=== PATIENT | male | born 1950 | race Caucasian/White ===

== ENCOUNTER → 2016-07-05 | Outpatient (CLI) | payer OTHER ==
[2016-07-05 14:27] LABS: ESTIMATED AVERAGE GLUCOSE 157 mg/dl; HA1C FLAG Normal (Normal)
[2016-07-05 18:06] LABS: BLOOD UREA NITROGEN 16 mg/dl (7-18); BUN/CREATININE RATIO 16.5 (10-20); CALCIUM 9.7 mg/dl (8.5-10.1); CARBON DIOXIDE 33 mmol/L (21-32); CHLORIDE 104 mmol/L (98-107); GLUCOSE 106 mg/dl (70-99); POTASSIUM 4.5 mmol/L (3.5-5.1); SODIUM 142 mmol/L (136-145)
[2016-07-05 18:17] LABS: PHOSPHORUS 3.7 mg/dl (2.5-4.9)
== END | disposition home or self-care (01) ==
LOC: C.LABMFLN 12:02
PROVIDERS: ATTEND Family Medicine
DX: E11.9 Type 2 diabetes mellitus without complications (principal)

== ENCOUNTER → 2016-07-23 | Outpatient (CLI) | payer OTHER | LOC: C.PATHSPEC 12:00 | PROVIDERS: ATTEND Dermatology | DX: L57.0 Actinic keratosis (principal) ==

== ENCOUNTER → 2016-07-29 | Outpatient (CLI) | payer OTHER ==
[2016-07-29 13:13] LABS: BASO % 0.2 %; BASO ABS # 0.02 K/uL (0-0.2); COMPLETE YES; EOS % 0.7 %; HEMATOCRIT 30.3 % (42-52); IG% 0.4 %; LYMPH % 17.8 %; LYMPH ABS # 1.59 K/uL (1.2-3.4); MEAN CELL VOLUME 79.7 fL (80-100); MEAN CORPUSCULAR HEMOGLOBIN 24.7 pg (25-34); MEAN PLATELET VOLUME 9.1 fL (7.4-10.4); NEUT % 70.9 %; PLATELET COUNT 373 K/uL (130-400); WHITE BLOOD COUNT 8.92 K/uL (4.8-10.8)
== END | disposition home or self-care (01) ==
LOC: C.LABMFLN 12:12
PROVIDERS: ATTEND Family Medicine
DX: D50.0 Iron deficiency anemia secondary to blood loss (chronic) (principal)

== ENCOUNTER → 2016-09-09 | Outpatient (CLI) | payer OTHER ==
[2016-09-09 18:37] LABS: BASO % 0.3 %; BASO ABS # 0.03 K/uL (0-0.2); COMPLETE YES; EOS % 3.5 %; HEMATOCRIT 35.6 % (42-52); IG% 0.2 %; LYMPH % 20.9 %; LYMPH ABS # 2.02 K/uL (1.2-3.4); MEAN CELL VOLUME 79.3 fL (80-100); MEAN CORPUSCULAR HEMOGLOBIN 24.7 pg (25-34); MEAN CORPUSCULAR HGB CONC 31.2 g/dl (32-36); MEAN PLATELET VOLUME 9.8 fL (7.4-10.4); MONO % 9.4 %; NEUT % 65.7 %; PLATELET COUNT 189 K/uL (130-400); RED BLOOD COUNT 4.49 M/uL (4.7-6.1); WHITE BLOOD COUNT 9.68 K/uL (4.8-10.8)
== END ==
LOC: C.LABMFLN 14:16
PROVIDERS: ATTEND Family Medicine
DX: D50.0 Iron deficiency anemia secondary to blood loss (chronic) (principal)

== ENCOUNTER → 2016-11-14 | Outpatient (CLI) | payer OTHER ==
[2016-11-14 13:24] LABS: BASO % 0.3 %; BASO ABS # 0.02 K/uL (0-0.2); EOS % 3.8 %; HEMATOCRIT 38.6 % (42-52); IG% 0.1 %; LYMPH % 33.9 %; LYMPH ABS # 2.33 K/uL (1.2-3.4); MEAN CELL VOLUME 74.1 fL (80-100); MEAN CORPUSCULAR HEMOGLOBIN 23.6 pg (25-34); MEAN CORPUSCULAR HGB CONC 31.9 g/dl (32-36); MEAN PLATELET VOLUME 9.9 fL (7.4-10.4); MONO % 9.6 %; NEUT % 52.3 %; PLATELET COUNT 165 K/uL (130-400); RED BLOOD COUNT 5.21 M/uL (4.7-6.1); WHITE BLOOD COUNT 6.87 K/uL (4.8-10.8)
[2016-11-14 13:49] LABS: COMPLETE YES; MICROCYTOSIS PRESENT
[2016-11-14 14:04] LABS: ESTIMATED AVERAGE GLUCOSE 134 mg/dl; HA1C FLAG Normal (Normal)
[2016-11-14 14:35] LABS: BLOOD UREA NITROGEN 28 mg/dl (7-18); BUN/CREATININE RATIO 21.7 (10-20); CALCIUM 9.7 mg/dl (8.5-10.1); CARBON DIOXIDE 25 mmol/L (21-32); CHLORIDE 110 mmol/L (98-107); GLUCOSE 102 mg/dl (70-99); PHOSPHORUS 3.5 mg/dl (2.5-4.9); POTASSIUM 4.4 mmol/L (3.5-5.1); SODIUM 141 mmol/L (136-145)
== END | disposition home or self-care (01) ==
LOC: C.LABMFLN 10:57
PROVIDERS: ATTEND Family Medicine
DX: D50.0 Iron deficiency anemia secondary to blood loss (chronic) (principal); E11.9 Type 2 diabetes mellitus without complications

== ENCOUNTER → 2016-12-26 | Outpatient (CLI) | payer OTHER | END | disposition home or self-care (01) | LOC: C.PATHSPEC 17:28 | PROVIDERS: ATTEND Dermatology | DX: C44.612 Basal cell carcinoma of skin of right upper limb, including shoulder (principal); C44.619 Basal cell carcinoma of skin of left upper limb, including shoulder ==

== ENCOUNTER → 2017-02-26 | Outpatient (CLI) | payer OTHER ==
[2017-02-26 12:50] LABS: ESTIMATED AVERAGE GLUCOSE 120 mg/dl; HA1C FLAG Normal (Normal)
[2017-02-26 12:59] LABS: BASO % 0.5 %; BASO ABS # 0.04 K/uL (0-0.2); COMPLETE YES; EOS % 3.8 %; HEMATOCRIT 38.7 % (42-52); IG% 0.1 %; LYMPH ABS # 2.21 K/uL (1.2-3.4); MEAN CELL VOLUME 76.6 fL (80-100); MEAN CORPUSCULAR HEMOGLOBIN 24.6 pg (25-34); MEAN PLATELET VOLUME 9.7 fL (7.4-10.4); MONO % 8.5 %; NEUT % 58.1 %; PLATELET COUNT 180 K/uL (130-400); RED BLOOD COUNT 5.05 M/uL (4.7-6.1); WHITE BLOOD COUNT 7.62 K/uL (4.8-10.8)
[2017-02-26 13:39] LABS: ALT/SGPT 18 U/L (12-78); AST/SGOT 13 U/L (15-37); BLOOD UREA NITROGEN 20 mg/dl (7-18); BUN/CREATININE RATIO 16.4 (10-20); CALCIUM 9.4 mg/dl (8.5-10.1); CARBON DIOXIDE 27 mmol/L (21-32); CHLORIDE 104 mmol/L (98-107); CHOLESTEROL 154 mg/dl (0-200); CREATININE 1.24 mg/dl (0.60-1.40); GLUCOSE 115 mg/dl (70-99); POTASSIUM 4.7 mmol/L (3.5-5.1); SODIUM 136 mmol/L (136-145)
[2017-02-26 13:42] LABS: ALB/GLOB RATIO 1.1 (0.9-2); ALKALINE PHOSPHATASE 57 U/L (45-117); CHOLESTEROL/HDL RATIO 4.4; HDL CHOLESTEROL 35 mg/dl; LDL CHOLESTEROL CALCULATED 99 mg/dl; TRIGLYCERIDES 99 mg/dl (0-150); VERY LOW DENSITY LIPOPROT CALC 20 mg/dl
== END | disposition home or self-care (01) ==
LOC: C.LABMFLN 09:31
PROVIDERS: ATTEND Family Medicine
DX: E11.9 Type 2 diabetes mellitus without complications (principal)

== ENCOUNTER → 2017-05-30 | Outpatient (CLI) | payer OTHER | END | disposition home or self-care (01) | LOC: C.PATHSPEC 13:29 | PROVIDERS: ATTEND Dermatology | DX: C44.319 Basal cell carcinoma of skin of other parts of face (principal); C44.519 Basal cell carcinoma of skin of other part of trunk; C44.612 Basal cell carcinoma of skin of right upper limb, including shoulder; C44.619 Basal cell carcinoma of skin of left upper limb, including shoulder ==

== ENCOUNTER → 2017-06-03 | Outpatient (CLI) | payer OTHER ==
[2017-06-03 12:44] LABS: BASO % 0.5 %; BASO ABS # 0.04 K/uL (0-0.2); EOS % 3.4 %; EOS ABS # 0.27 K/uL (0-0.5); HEMATOCRIT 38.3 % (42-52); HEMOGLOBIN 12.5 g/dL (14.0-18.0); IG# 0.03 K/uL (0.00-0.02); LYMPH % 30.1 %; LYMPH ABS # 2.39 K/uL (1.2-3.4); MEAN CELL VOLUME 76.6 fL (80-100); MEAN CORPUSCULAR HGB CONC 32.6 g/dl (32-36); MONO % 8.4 %; MONO ABS # 0.67 K/uL (0.11-0.59); NEUT % 57.2 %; NEUT ABS # 4.54 K/uL (1.4-6.5); PLATELET COUNT 182 K/uL (130-400); RED CELL DISTRIBUTION WIDTH CV 14.3 % (11.5-14.5); RED CELL DISTRIBUTION WIDTH SD 40.6 fL (36.4-46.3); WHITE BLOOD COUNT 7.94 K/uL (4.8-10.8)
[2017-06-03 13:52] LABS: CREATININE RANDOM URINE 87.4 mg/dl
[2017-06-03 14:37] LABS: BLOOD UREA NITROGEN 25 mg/dl (7-18); CALCIUM 9.6 mg/dl (8.5-10.1); CARBON DIOXIDE 23 mmol/L (21-32); CREATININE 1.41 mg/dl (0.60-1.40); GLUCOSE 117 mg/dl (70-99); PHOSPHORUS 3.6 mg/dl (2.5-4.9); POTASSIUM 4.6 mmol/L (3.5-5.1); SODIUM 140 mmol/L (136-145)
== END | disposition home or self-care (01) ==
LOC: C.LABMFLN 09:48
PROVIDERS: ATTEND Family Medicine
DX: E11.9 Type 2 diabetes mellitus without complications (principal)

== ENCOUNTER → 2017-06-13 | Outpatient (CLI) | payer OTHER ==
[2017-06-13 13:14] LABS: ALBUMIN 3.9 gm/dl (3.4-5.0); BLOOD UREA NITROGEN 25 mg/dl (7-18); CALCIUM 9.2 mg/dl (8.5-10.1); CARBON DIOXIDE 25 mmol/L (21-32); GLUCOSE 98 mg/dl (70-99); PHOSPHORUS 3.5 mg/dl (2.5-4.9); POTASSIUM 4.2 mmol/L (3.5-5.1); SODIUM 137 mmol/L (136-145)
== END | disposition home or self-care (01) ==
LOC: C.LABMFLN 07:06
PROVIDERS: ATTEND Family Medicine
DX: I10 Essential (primary) hypertension (principal)

== ENCOUNTER 2018-09-05 23:55 | Inpatient (IN) ==
[2018-09-06] MEDS ORDERED: POLYETHYLENE (MIRALAX) 17 GM PACK PO PRN (02:39)
[2018-09-06] MEDS ORDERED: MAGNESIUM HYDROXIDE SUSP 30 ML UDC PO PRN (02:39)
[2018-09-06] MEDS ORDERED: ALUMINUM/MAGNESIUM SUSP 30 ML UDC PO PRN (02:39)
[2018-09-06] MEDS ORDERED: GLUCAGON FOR INJ 1 MG VIAL SQ PRN (02:39)
[2018-09-06] MEDS ORDERED: CARBOHYDRATES FOR HYPOGLYCEMIA PO PRN (02:39)
[2018-09-06] MEDS ORDERED: MoRPHine SULFATE 4 MG/ML 1 ML CARP\\VIAL IV PRN (02:39)
[2018-09-06] MEDS ORDERED: ACETAMINOPHEN 325 MG TAB PO PRN (02:39)
[2018-09-06] MEDS ORDERED: ONDANSETRON INJ 2 MG/ML 2 ML VIAL IV PRN ×2 (02:39→14:32)
[2018-09-06] MEDS ORDERED: GLUCOSE 40% GEL 15 GM TUBE PO PRN (02:39)
[2018-09-06] MEDS ORDERED: GLUCOSE 10 TABS/TUBE PO PRN (02:39)
[2018-09-06] MEDS ORDERED: DEXTROSE 50% 50 ML SYRINGE IV PRN (02:39)
--- NOTE | 2018-09-06 02:57 | History & Physical Report ---
Date of Service September 06, 2018 Assessment & Plan (1) Hydronephrosis with obstructing calculus: 67yo M admitted 09/06/18 as a direct transfer from [facility] for hydronephrosis with obstructing calculus Hydronephrosis with obstructing calculus -Consulted urology, appreciate recs -NSS at 125, NPO -Started on Rocephin -morphine for pain -Zofran prn for nausea -Strain urine -Monitor labs T2DM with complications (neuropathy, nephropathy) -Placed on ISS, holding home PO agents -Last A1c measured in May 2018=6.2%. Has been <7 for 2 years. will defer recheck. Chronic uveitis of R eye/Glaucoma -Patient on 4 eye drops, to bring from home HTN -Continue metoprolol 25 ER, amlodipine -Hold lisinopril 20 Anemia -hold daily iron H/O GI bleed -states this started 3 days after initiating asa -Will hold agents at this time Code: full DVTP: SCDs Dispo: med/surg. (Manuela) to be contacted in AM: Home--[phone]. Cell--[phone]. 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 He notes he was awoken on the evening of 09/05/18 with severe R flank pain which radiated to his back and RLQ. He presented to [facility] and was transferred here after CT findings as above. Per discussion with OSH, [facility] urology has been contacted. His labs at OSH were significant for Cr 1.8 (Baseline 1.4-1.58), WBC 11,300, UA showing Large blood and 50+ RBCs. He was started on rocephin, given fentanyl, compazine and zofran. Upon arrival he is afebrile, VSS with some hypertension. He is currently in moderate pain in the R flank and nauseated. Allergies Allergy/AdvReac Type Severity Reaction Status Date / Time aspirin AdvReac Unknown Verified 09/06/18 03:01 Home Medications Home Medications Medication Instructions Recorded Confirmed Type cyanocobalamin (vit B-12) 1,000 PO .TAKE 1 TABLET DAILY tab 08/19/18 08/19/18 History mcg tablet ferrous gluconate 324 mg (38 mg PO .TAKE 1 TABLET DAILY. tab 08/19/18 08/19/18 History iron) tablet loteprednol etabonate 0.5 % eye OP .instill one drop rig gm 08/19/18 08/19/18 History gel drops metformin 1,000 mg tablet PO .Take 1 tablet twice #180 tab 08/19/18 08/19/18 History metoprolol succinate ER 25 mg PO .TAKE 1 TABLET DAILY. 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 (Acute) Chronic uveitis of right eye (Acute) Chronic rhinitis (Acute) CKD (chronic kidney disease), stage III (Acute) Benign essential hypertension (Acute) Anemia (Acute) Hypertension Kidney stone Surgical History History of appendectomy History of vasectomy Social History Preferred Language: Czech Communication Ability: Effective Security Rep Required: No Beliefs That Will Affect Care: None Current Living Situation: Spouse Current Living Situation Comment: "private residence" Other Information That Helps Us Care for You: No Feels Safe at Home: Yes Safety Concerns: Feels Safe At This Time Smoking Status: Never smoker Hx Alcohol Use: Yes Alcohol type: beer and wine Hx Substance Use: No Review of Systems Review of Systems: All systems reviewed & are unremarkable except as noted in HPI & below Constitutional: + body aches and + fatigue; no fever and no chills Eyes: + discharge and + worsening vision Ear, Nose, Mouth, Throat: + hearing loss and + nasal congestion Respiratory: no cough and no dyspnea Cardiovascular: no chest pain and no radiating jaw, neck or arm pain Gastrointestinal: + abdominal pain (R-sided, RLQ), + nausea and + vomiting Genitourinary: + flank pain and + problem reported (dark urine); no hematuria Neurologic: + loss of sensation (peripheral neuropathy); no tingling Physical Exam Constitutional: WD/WN, vitals as above cooperative and comfortable; no acute distress and no altered mental status Eyes: + conjunctival abnormality (injection, discharge) and reactive pupils ENMT: Ears: + hearing impairment Neck: normal visual inspection Respiratory: normal respiratory effort, lungs clear to auscultation Cardiovascular: RRR, no murmur, no edema Gastrointestinal (Abdomen): Percussion/Palpation: + abdomen tender (R flank, RLQ), + guarding and abdomen soft Skin: no rashes, warm and dry Neurologic: Motor/Sensory: + sensory deficit (peripheral neuropathy bilaterally of feet) Psychiatric: A+Ox3, euthymic affect Genitourinary: + CVA tenderness (R sided) Results & Data Vital Signs (Past 12 Hours) Vital Signs Temp Pulse Resp BP Pulse Ox 09/06/18 00:30 36.7 C 90 16 170/89 H 95 Code Status & VTE Plan Code Status full Supervising Physician Co-Signing Physician Notes Patient seen and examined, chart reviewed, case discussed with Dr. Banuelos and I agree with her assessment and plan as documented above. Resident Activity Tracking Resident Involvement: Resident Care Provided Care Provided: Adult Hospital Medicine
[2018-09-06] MEDS: SODIUM CHLORIDE 0.9% 1000ML 1,000 ML IV SCH ×3 (03:13→23:22)
[2018-09-06] MEDS ORDERED: PROCHLORPERAZINE 10 MG in SYRINGE 8 ML IV PRN (04:31)
[2018-09-06] MEDS: INSULIN ASPART 100 UNITS/ML 3 ML PEN SC SCH ×4 (05:33→21:35)
[2018-09-06 06:00] LABS: Basophils # (auto) 0.01 K/uL (0-0.2); Basophils % (auto) 0.1 %; Eosinophils # (auto) 0.02 K/uL (0-0.5); Eosinophils % (auto) 0.2 %; Hematocrit (blood only) 33.9 % (42-52); Hemoglobin 11.2 g/dL (14.0-18.0); Immature Granulocytes # (auto) 0.03 K/uL (0.00-0.02); Immature Granulocytes % (auto) 0.3 %; Lymphocytes # (auto) 1.12 K/uL (1.2-3.4); Lymphocytes % (auto) 10.3 %; Mean Corpuscular Volume 74.7 fL (80-100); Mean Platelet Volume 8.5 fL (7.4-10.4); Monocytes # (auto) 0.91 K/uL (0.11-0.59); Monocytes % (auto) 8.4 %; Neutrophils # (auto) 8.76 K/uL (1.4-6.5); Neutrophils % (auto) 80.7 %; Platelet Count 132 K/uL (130-400); RDW Coefficient of Variation 14.6 % (11.5-14.5); RDW Standard Deviation 39.9 fL (36.4-46.3); Red Blood Count 4.54 M/uL (4.7-6.1); White Blood Count 10.85 K/uL (4.8-10.8)
[2018-09-06 06:34] LABS: BUN Creatinine Ratio 18.3 (10-20); Creatinine Clr Calc Pharmacy 49.3 ml/min; Est GFR (Non-African American) 41.4
[2018-09-06 06:38] LABS: RBC Morphology Unremarkable
[2018-09-06] MEDS: METOPROLOL SUCC 25MG EXT REL TAB PO SCH (08:47)
[2018-09-06] MEDS: AMLODIPINE BESYLATE 5 MG TAB PO SCH (08:47)
[2018-09-06] MEDS: INSULIN GLARGINE SOLOSTAR 100 UNITS/ML 3 ML PEN SC SCH ×2 (08:47→21:28)
[2018-09-06] MEDS: cefTRIAXone SODIUM 2,000 MG in DEXTROSE 5% 50 ML IV SCH (08:47)
[2018-09-06] MEDS ORDERED: LISINOPRIL 20 MG TAB PO SCH (09:00)
--- NOTE | 2018-09-06 11:37 | Anesthesiology Consultation ---
Date of Service September 06, 2018 Assessment & Plan (1) Encounter for pre-operative examination: Chart Review Chart Review: Acceptable Risk for Surgery and Patient NOT seen in Pre Admission Testing Consults Requested none ASA ASA2 Proposed Anesthesia Anesthesia Type: MAC Risk / Benefits Reviewed With: PT / POA / Parent / Guardian, Accepts Plan and Informed Consent Obtained History Surgery Operation Date: 09/06/18 12:30 Proposed Procedures p Cystoscopy, Stent insertion, possible laser lithotripsy - Walt Esposito II, DO Height/Weight Height: 6 ft 1.5 in Weight: 92 kg Allergies Allergy/AdvReac Type Severity Reaction Status Date / Time aspirin AdvReac Unknown Verified 09/06/18 03:01 Medications Home Medications Medication Instructions Recorded Confirmed Last Taken cyanocobalamin (vit B-12) 1,000 1,000 mcg PO DAILY tab 08/19/18 09/06/18 Unknown mcg tablet ferrous gluconate 324 mg (38 mg 324 mg PO DAILY tab 08/19/18 09/06/18 Unknown iron) tablet loteprednol etabonate 0.5 % eye 1 drp OPR QID gm 08/19/18 09/06/18 Unknown gel drops metformin 1,000 mg tablet 1,000 mg PO BID #180 tab 08/19/18 09/06/18 Unknown metoprolol succinate ER 25 mg 25 mg PO DAILY #30 tab 08/19/18 09/06/18 Unknown tablet,extended release 24 hr netarsudil 0.02 % eye drops 1 drp OPR DAILY ml 08/19/18 09/06/18 Unknown sitagliptin 50 mg tablet 50 mg PO DAILY #30 tab 08/19/18 09/06/18 Unknown amlodipine 10 mg tablet 10 mg PO DAILY #30 tab 08/31/18 Unknown Active Medications Generic Name Dose Route Start Last Admin Trade Name Freq PRN Reason Stop Dose Admin Amlodipine Besylate 10 mg 09/06/18 09:00 09/06/18 08:47 Norvasc PO 10/06/18 08:59 10 mg DAILY KATIE Administration Sodium Chloride 1,000 mls @ 125 mls/hr 09/06/18 02:45 09/06/18 11:08 Nss 1000ml IV 10/06/18 02:44 125 mls/hr .Q8H KATIE Administration Ceftriaxone Sodium 2,000 mg/ 70 mls @ 140 mls/hr 09/06/18 09:00 09/06/18 09:22 Dextrose IV 09/16/18 08:59 Infused Q24H [facility] Infusion Protocol Prochlorperazine 10 mg/ 10 mls @ 5 mls/min 09/06/18 04:31 09/06/18 05:24 Syringe IV 10/06/18 04:30 5 mls/min Q4H PRN Administration Nausea And Vomiting Insulin Aspart 0 units 09/06/18 06:00 09/06/18 12:25 Novolog Flexpen SC 10/06/18 05:59 Not Given Q6 [facility] Insulin Glargine 16 units 09/06/18 09:00 09/06/18 08:47 Lantus Solostar Pen SC 10/06/18 08:59 16 units BID KATIE Administration Metoprolol Succinate 25 mg 09/06/18 09:00 09/06/18 08:47 Toprol Xl PO 10/06/18 08:59 25 mg DAILY KATIE Administration Morphine Sulfate 4 mg 09/06/18 02:39 09/06/18 03:13 Morphine Sulfate IV 09/20/18 02:38 4 mg Q2H PRN Administration Pain Ondansetron HCl 4 mg 09/06/18 02:39 09/06/18 03:13 Zofran IV 10/06/18 02:38 4 mg Q6H PRN Administration Nausea NPO Date Last Intake of Fluids: 09/05/18 Time Last Intake of Fluids: 12:00 Date Last Intake of Solids: 09/05/18 Time Last Intake of Solids: 12:00 Past Medical History Medical History Mixed conductive and sensorineural hearing loss of left ear with restricted hearing of right ear (Acute) History of basal cell carcinoma (Acute) Glaucoma (Acute) Diverticulosis of colon (Acute) Diabetes mellitus, type II (Acute) 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 Past Surgical History Surgical History History of appendectomy History of vasectomy Past Anesthesia History No Hx of Anesthesia Complications History of PONV No Hx of PONV and No Hx of Motion Sickness Social History Smoking Status: Never smoker Hx Alcohol Use: Yes Alcohol type: beer and wine alcohol intake frequency: holidays/special occasions only Hx Substance Use: No substance use type: does not use Review of Systems Patient denies active symptoms of GERD. Denies nausea currently - last emesis about 5 AM Physical Exam Vital Signs Last Vital Signs Temp 37.0 C 09/06/18 07:32 Pulse 81 09/06/18 07:32 Resp 16 09/06/18 07:32 BP 143/76 H 09/06/18 07:32 Pulse Ox 98 09/06/18 07:32 Constitutional not obese ENMT Mouth: + small oral opening; no TMJ abnormality Thyromental Distance: > or= 3.5 Finger Breadths Mallampati Class: III Neck normal visual inspection and + facial hair; neck extension not limited Respiratory normal respiratory effort Auscultation: lungs clear to auscultation bilaterally Cardiovascular Rate/Rhythm: regular rate and regular rhythm Heart Sounds: no murmur Neurologic moves all extremities Motor/Sensory: + sensory deficit (Neuropathy in feet and hands) Psychiatric Orientation: alert and oriented x 3 Testing Laboratory Results 09/06/18 05:45 09/06/18 05:45
--- NOTE | 2018-09-06 12:43 | Urology Consultation ---
Date of Consultation September 06, 2018 Assessment & Plan (1) Hydronephrosis with obstructing calculus: History of Present Illness Attending Physician: Tessa Lyons MD History of Present Illness Sudden onset of severe right flank pain in waves with nausea and discomfort and ill feelings. Has followed with nephrology. No previous stones. Was in [place] and found 9 mm mid right ureteral stone with perinephric stranding. Mild white count. pain uncontrolled. Transferred. Improved pain control but still severe waves at times. Allergies Allergy/AdvReac Type Severity Reaction Status Date / Time aspirin AdvReac Unknown Verified 09/06/18 03:01 Home Medications Home Medications Medication Instructions Recorded Confirmed Type cyanocobalamin (vit B-12) 1,000 1,000 mcg PO DAILY tab 08/19/18 09/06/18 History mcg tablet ferrous gluconate 324 mg (38 mg 324 mg PO DAILY tab 08/19/18 09/06/18 History iron) tablet loteprednol etabonate 0.5 % eye 1 drp OPR QID gm 08/19/18 09/06/18 History gel drops metformin 1,000 mg tablet 1,000 mg PO BID #180 tab 08/19/18 09/06/18 History metoprolol succinate ER 25 mg 25 mg PO DAILY #30 tab 08/19/18 09/06/18 History tablet,extended release 24 hr netarsudil 0.02 % eye drops 1 drp OPR DAILY ml 08/19/18 09/06/18 History sitagliptin 50 mg tablet 50 mg PO DAILY #30 tab 08/19/18 09/06/18 History amlodipine 10 mg tablet 10 mg PO DAILY #30 tab 08/31/18 Rx Patient History Medical History Mixed conductive and sensorineural hearing loss of left ear with restricted hearing of right ear (Acute) History of basal cell carcinoma (Acute) Glaucoma (Acute) Diverticulosis of colon (Acute) Diabetes mellitus, type II (Acute) 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 (Acute) Chronic uveitis of right eye (Acute) Chronic rhinitis (Acute) CKD (chronic kidney disease), stage III (Acute) Benign essential hypertension (Acute) Anemia (Acute) Hypertension Kidney stone Surgical History History of appendectomy History of vasectomy Social History Preferred Language: Ethiopian Communication Ability: Effective Micro Computer Data Processor Required: No Beliefs That Will Affect Care: None Current Living Situation: Spouse Current Living Situation Comment: "private residence" Other Information That Helps Us Care for You: No Feels Safe at Home: Yes Safety Concerns: Feels Safe At This Time Smoking Status: Never smoker Hx Alcohol Use: Yes Alcohol type: beer and wine Hx Substance Use: No Review of Systems Review of Systems: All systems reviewed & are unremarkable except as noted in HPI & below Constitutional: + body aches and + fatigue; no fever and no chills Eyes: + discharge and + worsening vision Ear, Nose, Mouth, Throat: + hearing loss and + nasal congestion Gastrointestinal: + abdominal pain (R-sided, RLQ), + nausea and + vomiting Genitourinary: + flank pain and + problem reported (dark urine); no hematuria Neurologic: + loss of sensation (peripheral neuropathy); no tingling Physical Exam Constitutional: WD/WN, vitals as above cooperative and comfortable; no acute distress and no altered mental status Eyes: + conjunctival abnormality (injection, discharge) and reactive pupils ENMT: Ears: + hearing impairment Neck: normal visual inspection Respiratory: no respiratory distress, no labored breathing and no retractions Cardiovascular: Rate/Rhythm: not tachycardic Extremities: no edema Gastrointestinal (Abdomen): Percussion/Palpation: + abdomen tender (R flank, RLQ), + guarding and abdomen soft Skin: no rashes, warm and dry Neurologic: Motor/Sensory: + sensory deficit (peripheral neuropathy chandrika aterally of feet) Psychiatric: A+Ox3, euthymic affect Genitourinary: + CVA tenderness (R sided) Lymphatic: no lymphadenopathy Results & Data Vital Signs (Past 12 Hours) Vital Signs Temp Pulse Resp BP Pulse Ox 09/06/18 07:32 37.0 C 81 16 143/76 H 98 09/06/18 02:59 89 169/94 H
[2018-09-06] MEDS ORDERED: PROPOFOL IV EMULSION 10 MG/ML 20 ML VIAL IV ONE ×2 (14:00→14:54)
[2018-09-06] MEDS ORDERED: fentaNYL citrate 100 MCG/2 ML VIAL ONE (14:00)
[2018-09-06] MEDS ORDERED: MIDAZOLAM HCL 1 MG/ML 2ML VIAL ONE (14:00)
[2018-09-06] MEDS ORDERED: LIDOCAINE HCL 2% 2 ML VIAL/AMP(20MG/ML) INFIL ONE (14:00)
[2018-09-06] MEDS ORDERED: IOTHALAMATE MEGLUMINE II 17.2% 250 ML VIAL ONE (14:30)
[2018-09-06] MEDS ORDERED: fentaNYL citrate 100 MCG/2 ML VIAL IV PRN (14:32)
[2018-09-06] MEDS ORDERED: PROMETHAZINE HCL 12.5 MG in SODIUM CHLORIDE 0.9% 50 ML IV PRN (14:32)
[2018-09-06] MEDS ORDERED: ATROPINE SULFATE 0.1 MG/ML 10ML SYR IV PRN (14:32)
[2018-09-06] MEDS ORDERED: ePHEDrine sulfate 50 MG/ML AMP IV PRN (14:32)
[2018-09-06] MEDS ORDERED: ONDANSETRON INJ 2 MG/ML 2 ML VIAL ONE (14:38)
--- NOTE | 2018-09-06 15:07 | Operative Report ---
Post Operative Report Pre & Post Diagnosis Operation Date: 09/06/18 12:30 Pre-Op Diagnosis: LARGE OBSTRUCTIVE RENAL RIGHT STONE,RENAL INSUFFICIENCY Post-Op Diagnosis: LARGE OBSTRUCTIVE RENAL RIGHT STONE,RENAL INSUFFICIENCY Procedure Operation Date: 09/06/18 12:30 Actual Procedures p Cystoscopy, Right Retrograde pyelogram, Right Ureteral stent insertion(Right) - Walt Esposito II, DO Surgeon Walt Esposito, II, DO Lap Machine Tender None Estimated Blood Loss 0 Findings Consistent with Post-Op Diagnosis Large debris from kidney with stent placement. Specimens Urine from Right Pelvis. Drains 6 Fr Multilength. Anesthesia Type MAC Complications none Disposition Disposition: Recovery Room Indications Patient with obstructing stone 9 mm in mid ureter. Risks and benefits discussed. Description of Procedure Patient was consented and brought back to the operating room. Patient was placed under anesthesia in the supine position and moved to the dorsal lithotomy position. Patient was prepped and draped in the regular sterile fashion. A time out was completed. A 30degree Cystoscope was placed into the bladder and the entire bladder was examined. The UO's were identified. The right UO was cannulized with a catheter and urine was aspirated. Old appearing clot and debris was seen draining. The catheter was advanced and a retrograde pyelogram was completed. A wire was then placed. With the wire in place, a 6 Fr Double J stent was placed. It was confirmed with fluoroscopy. With the stent in place, the bladder was emptied. The scope was removed. The patient was cleaned, aroused from anesthesia, and transferred to the pacu in stable condition having tolerated the procedure well with no complications. I was present and participated in all aspects of the procedure. The patient will be monitored in the PACU until transferred. I attest to the content of the Intraoperative Record and any orders documented therein. Any exceptions are noted below.
--- NOTE | 2018-09-06 15:44 | Anesthesiology Progress Note ---
Date of Service September 06, 2018 Anesthesia Post Procedure Vital Signs Vital Signs: Temp Pulse Pulse Resp BP Pulse Ox 09/06/18 15:35 70 13 118/63 95 09/06/18 15:25 72 17 112/66 96 09/06/18 15:15 36.6 C 72 14 114/65 98 09/06/18 07:32 37.0 C 81 16 143/76 H 98 09/06/18 02:59 89 169/94 H 09/06/18 00:30 36.7 C 90 16 170/89 H 95 Pain Intensity Right Flank: Pain Intensity: 2 Transfer of Care Handoff Completed per policy Notes Mental Status: alert / awake / arousable and participated in evaluation Nausea / Vomiting: adequately controlled Pain: adequately controlled Airway Patency, RR, SpO2: stable & adequate BP & HR: stable & adequate Hydration State: stable & adequate Anesthetic Complications: no major complications apparent and Pt Satisfied with anesthetic care
[2018-09-06] MEDS ORDERED: Nursing to Pharmacy Communication ONE (16:36)
--- NOTE | 2018-09-06 16:48 | Fluoroscopy Report ---
FL retrograde includes kub HISTORY: 67 years-old Male CYSTO cystourethrogram with right flank pain and right ureteral stent laura cement COMPARISON: None available TECHNIQUE: 2 spot fluoroscopic images of the right abdomen and pelvis were obtained utilizing 28.1 se conds fluoroscopy time FINDINGS: A right ureteral stent is present which appears to be in satisfactory positioning. No definite calcul i seen along the course of the right ureter. IMPRESSION: Fluoroscopic assistance as above. Please see procedural report for further details. The above report was generated using voice recognition software. It may contain grammatical, syntax o r spelling errors. Electronically signed by: Lefty Qureshi M.D. 09/06/2018 4:47 PM
[2018-09-06] MEDS: LOTEMAX OPR SCH (21:20)
[2018-09-06] MEDS: COMBIGAN OP SCH (21:20)
[2018-09-06] MEDS: RHOPRESSA: NON-FORMULARY PATIENT'S OWN MED OPR SCH (21:20)
[2018-09-07] MEDS: SODIUM CHLORIDE 0.9% 1000ML 1,000 ML IV SCH (06:08)
--- NOTE | 2018-09-07 07:25 | Anesthesiology Progress Note ---
Date of Service September 07, 2018 Anesthesia Post Procedure Vital Signs Vital Signs: Temp Pulse Pulse Pulse Pulse Resp BP 09/07/18 03:21 36.5 C 64 19 126/69 09/06/18 23:14 36.7 C 71 18 125/71 09/06/18 19:03 37.0 C 76 20 09/06/18 18:04 37.1 C 74 20 09/06/18 17:07 37.1 C 74 18 09/06/18 16:34 37.0 C 70 20 09/06/18 16:09 37 C 74 16 09/06/18 15:45 37.2 C 72 19 09/06/18 15:35 70 13 09/06/18 15:25 72 17 09/06/18 15:15 36.6 C 72 14 09/06/18 07:32 37.0 C 81 16 BP Pulse Ox 09/07/18 03:21 98 09/06/18 23:14 97 09/06/18 19:03 129/67 94 09/06/18 18:04 155/81 H 98 09/06/18 17:07 151/82 H 99 09/06/18 16:34 156/81 H 97 09/06/18 16:09 147/78 H 95 09/06/18 15:45 115/60 94 09/06/18 15:35 118/63 95 09/06/18 15:25 112/66 96 09/06/18 15:15 114/65 98 09/06/18 07:32 143/76 H 98 Pain Intensity Right Flank: Pain Intensity: 2 Notes Mental Status: alert / awake / arousable and participated in evaluation Patient Amnestic to Procedure: Yes Nausea / Vomiting: adequately controlled Pain: adequately controlled Airway Patency, RR, SpO2: stable & adequate BP & HR: stable & adequate Hydration State: stable & adequate Anesthetic Complications: no major complications apparent and Pt Satisfied with anesthetic care
[2018-09-07] MEDS: LOTEMAX OPR SCH ×4 (08:25→21:02)
[2018-09-07] MEDS: COMBIGAN OP SCH ×2 (08:25→21:01)
[2018-09-07] MEDS: AMLODIPINE BESYLATE 5 MG TAB PO SCH (08:26)
--- NOTE | 2018-09-07 08:26 | XRay Report ---
XR KUB/Abdomen 1 view CLINICAL HISTORY: 67 years-old Male presenting with R ureteral stone visibility, s/p stent. TECHNIQUE: Single supine view of the abdomen was obtained. COMPARISON: Fluoroscopic images performed yesterday. FINDINGS: Moderate stool burden most pronounced in the right colon. This degrades evaluation of the renal shado ws. Nonobstructive bowel gas pattern. No gross pneumoperitoneum. A right ureteral stent remains in place. Numerous pelvic phleboliths. Allowing for stool burden, no r adiographic evidence of ureteral calculus. No renal calculi are radiographically evident. Osseous structures normal. Lung bases clear. IMPRESSION: 1. Right ureteral stent in place. Nonvisualization of renal or ureteral calculi. Electronically signed by: Prabhakar Dalton M.D. 09/07/2018 8:24 AM
[2018-09-07] MEDS: METOPROLOL SUCC 25MG EXT REL TAB PO SCH (08:27)
[2018-09-07] MEDS: INSULIN GLARGINE SOLOSTAR 100 UNITS/ML 3 ML PEN SC SCH ×2 (08:30→21:05)
[2018-09-07] MEDS: INSULIN ASPART 100 UNITS/ML 3 ML PEN SC SCH ×4 (08:32→21:04)
[2018-09-07] MEDS: cefTRIAXone SODIUM 2,000 MG in DEXTROSE 5% 50 ML IV SCH (08:35)
[2018-09-07 08:43] LABS: Basophils # (auto) 0.02 K/uL (0-0.2); Basophils % (auto) 0.2 %; Eosinophils # (auto) 0.21 K/uL (0-0.5); Eosinophils % (auto) 2.5 %; Hematocrit (blood only) 35.3 % (42-52); Hemoglobin 11.6 g/dL (14.0-18.0); Immature Granulocytes # (auto) 0.02 K/uL (0.00-0.02); Immature Granulocytes % (auto) 0.2 %; Lymphocytes # (auto) 2.17 K/uL (1.2-3.4); Lymphocytes % (auto) 26.1 %; Mean Corpuscular Volume 76.1 fL (80-100); Mean Platelet Volume 8.6 fL (7.4-10.4); Monocytes # (auto) 0.95 K/uL (0.11-0.59); Monocytes % (auto) 11.4 %; Neutrophils # (auto) 4.94 K/uL (1.4-6.5); Neutrophils % (auto) 59.6 %; Platelet Count 144 K/uL (130-400); RDW Coefficient of Variation 15.1 % (11.5-14.5); Red Blood Count 4.64 M/uL (4.7-6.1); White Blood Count 8.31 K/uL (4.8-10.8)
[2018-09-07 09:16] LABS: Mean Corpuscular Hgb Conc 32.9 g/dL (32-36)
[2018-09-07 09:29] LABS: BUN Creatinine Ratio 16.6 (10-20); Calcium 9.2 mg/dl (8.5-10.1); Creatinine Clr Calc Pharmacy 50.2 ml/min; Est GFR (Non-African American) 42.3; Potassium 3.9 mmol/L (3.5-5.1)
--- NOTE | 2018-09-07 11:01 | Family Medicine Progress Note ---
Date of Service September 07, 2018 Assessment & Plan (1) Hydronephrosis with obstructing calculus: 67yo M admitted 09/06/18 as a direct transfer from [facility] for hydronephrosis with obstructing calculus, now s/p R ureteral stent placement. Hydronephrosis with obstructing calculus -s/p Cystoscopy, Right Retrograde pyelogram, Right Ureteral stent insertion -NSS at 125 dc'd, tolerating PO intake. Cont encourage plenty of fluids -Cont Rocephin -morphine for pain -Zofran prn for nausea -will cont monitor kidney function, labs -appreciate urology recs moving forward T2DM with complications (neuropathy, nephropathy) -Placed on ISS, holding home PO agents -Last A1c measured in May 2018=6.2%. Has been <7 for 2 years. will defer recheck. Chronic uveitis of R eye/Glaucoma -Patient on 4 eye drops, to bring from home HTN -Continue metoprolol 25 mg ER, amlodipinen 10 mg -Hold lisinopril 20 mg Anemia -cont daily iron H/O GI bleed -states this started 3 days after initiating asa -Will hold agents at this time FEN/GI: Diabetic Diet DVT Prophylaxis: SCDs, Ambulation Full Code Dispo: med/surg. ([place]) to be contacted in AM: Home--[phone]. Cell--[phone]. Subjective 67 y/o M found in chair this AM in NAD. Reports pain improved since yesterday. Only concerns about ongoing red-tinged urine. Otherwise tolerating PO intake. No other issues voiding. States would be ok with d/c today or tomorrow. No other acute concerns or complaints. Review of Systems Review of Systems: All systems reviewed & are unremarkable except as noted in HPI & below Physical Exam Constitutional: WD/WN, vitals as above Eyes: PERRL, conjunctivae normal, anicteric sclerae ENMT: external ear and nose normal, oropharynx normal Respiratory: normal respiratory effort, lungs clear to auscultation Cardiovascular: RRR, no murmur, no edema Gastrointestinal (Abdomen): mild lower abd tenderness Skin: no rashes, warm and dry Psychiatric: A+Ox3, euthymic affect Results & Data Vital Signs (Past 12 Hours) Vital Signs Temp Pulse Pulse Pulse Resp BP Pulse Ox 09/07/18 07:50 36.7 C 70 18 160/84 H 97 09/07/18 03:21 36.5 C 64 19 126/69 98 09/06/18 23:14 36.7 C 71 18 125/71 97 Laboratory Results Laboratory Results - last 24 hr 09/06/18 09/06/18 09/06/18 12:22 15:29 17:12 WBC RBC Hgb Hct MCV MCH MCHC RDW Std Deviation RDW Coeff of Jer Plt Count MPV Immature Gran % (Auto) Neut % (Auto) Lymph % (Auto) [place] % (Auto) Eos % (Auto) Baso % (Auto) Immature Gran # (Auto) Neut # (Auto) Lymph # (Auto) [place] # (Auto) Eos # (Auto) Baso # (Auto) Sodium Potassium Chloride Carbon Dioxide Anion Gap BUN Creatinine Est Cr Clr Drug Dosing Est GFR ( Amer) Est GFR (Non-Af Amer) BUN/Creatinine Ratio Glucose POC Glucose 127 H 97 100 H Calcium 09/06/18 09/07/18 09/07/18 20:43 08:30 08:32 WBC 8.31 RBC 4.64 L Hgb 11.6 L Hct 35.3 L MCV 76.1 L MCH 25.0 MCHC 32.9 RDW Std Deviation 42.0 RDW Coeff of Jer 15.1 H Plt Count 144 MPV 8.6 Immature Gran % (Auto) 0.2 Neut % (Auto) 59.6 Lymph % (Auto) 26.1 [place] % (Auto) 11.4 Eos % (Auto) 2.5 Baso % (Auto) 0.2 Immature Gran # (Auto) 0.02 Neut # (Auto) 4.94 Lymph # (Auto) 2.17 [place] # (Auto) 0.95 H Eos # (Auto) 0.21 Baso # (Auto) 0.02 Sodium Potassium Chloride Carbon Dioxide Anion Gap BUN Creatinine Est Cr Clr Drug Dosing Est GFR ( Amer) Est GFR (Non-Af Amer) BUN/Creatinine Ratio Glucose POC Glucose 131 H 78 Calcium 09/07/18 08:35 WBC RBC Hgb Hct MCV MCH MCHC RDW Std Deviation RDW Coeff of Jer Plt Count MPV Immature Gran % (Auto) Neut % (Auto) Lymph % (Auto) [place] % (Auto) Eos % (Auto) Baso % (Auto) Immature Gran # (Auto) Neut # (Auto) Lymph # (Auto) [place] # (Auto) Eos # (Auto) Baso # (Auto) Sodium 142 Potassium 3.9 Chloride 108 H Carbon Dioxide 27 Anion Gap 7.0 BUN 28 H Creatinine 1.66 H Est Cr Clr Drug Dosing 50.2 Est GFR ( Amer) 49.0 Est GFR (Non-Af Amer) 42.3 BUN/Creatinine Ratio 16.6 Glucose 81 POC Glucose Calcium 9.2 Medications Administered Current Inpatient Medications Acetaminophen (Tylenol) 650 mg PO Q4H PRN PRN Reason: pain/fever Stop: 10/06/18 02:38 Al Hydrox/Mg Hydrox/Simethicone (Maalox) 30 ml PO Q6H PRN PRN Reason: Dyspepsia Stop: 10/06/18 02:38 Amlodipine Besylate (Norvasc) 10 mg PO DAILY KATIE Stop: 10/06/18 08:59 Last Admin: 09/07/18 08:26 Dose: 10 mg Documented by: Dextrose (Dextrose 50%) 25 - 50 ml IV UD PRN; Protocol PRN Reason: Hypoglycemia Protocol Stop: 10/06/18 02:38 Glucagon (Glucagen) 1 mg SQ UD PRN; Protocol PRN Reason: Hypoglycemia Protocol Stop: 10/06/18 02:38 Glucose (Glucose 40%) 15 - 30 gm PO UD PRN; Protocol PRN Reason: Hypoglycemia Protocol Stop: 10/06/18 02:38 Glucose (Dex4 Glucose) 4 - 8 tabs PO UD PRN; Protocol PRN Reason: Hypoglycemia Protocol Stop: 10/06/18 02:38 Ceftriaxone Sodium 2,000 mg/ (Dextrose) 70 mls @ 140 mls/hr IV Q24H KATIE; Protocol Stop: 09/16/18 08:59 Last Infusion: 09/07/18 09:32 Dose: Infused Documented by: Prochlorperazine 10 mg/ (Syringe) 10 mls @ 5 mls/min IV Q4H PRN PRN Reason: Nausea And Vomiting Stop: 10/06/18 04:30 Last Admin: 09/06/18 05:24 Dose: 5 mls/min Documented by: Insulin Aspart (Novolog Flexpen) 0 units SC ACHS KATIE Stop: 10/06/18 16:29 Last Admin: 09/07/18 08:32 Dose: 6 units Documented by: Insulin Glargine (Lantus Solostar Pen) 16 units SC BID [facility] Stop: 10/06/18 08:59 Last Admin: 09/07/18 08:30 Dose: 16 units Documented by: Lisinopril (Zestril) 20 mg PO QAM [facility] Stop: 10/06/18 08:59 Magnesium Hydroxide (Milk Of Magnesia) 30 ml PO Q6H PRN PRN Reason: Constipation Stop: 10/06/18 02:38 Metoprolol Succinate (Toprol Xl) 25 mg PO DAILY [facility] Stop: 10/06/18 08:59 Last Admin: 09/07/18 08:27 Dose: 25 mg Documented by: Miscellaneous (Carbohydrates For Hypoglycemia) 15 - 30 gm PO UD PRN PRN Reason: Hypoglycemia Treatment Stop: 10/06/18 02:38 Morphine Sulfate (Morphine Sulfate) 4 mg IV Q2H PRN PRN Reason: Pain Stop: 09/20/18 02:38 Last Admin: 09/06/18 03:13 Dose: 4 mg Documented by: Lotemax: Non- Formulary Patient's Own Med 1 ea OPR QID [facility] Stop: 10/06/18 20:59 Last Admin: 09/07/18 08:25 Dose: 1 drops Documented by: Rhopressa: Non- Formulary Patient's Own Med 1 ea OPR HS [facility] Stop: 10/06/18 20:59 Last Admin: 09/06/18 21:20 Dose: 1 drops Documented by: Tati ~ Non- Formulary Patient's Own Med 1 ea OP BID [facility] Stop: 10/06/18 20:59 Last Admin: 09/07/18 08:25 Dose: 1 drops Documented by: Ondansetron HCl (Zofran) 4 mg IV Q6H PRN PRN Reason: Nausea Stop: 10/06/18 02:38 Last Admin: 09/06/18 03:13 Dose: 4 mg Documented by: Polyethylene Glycol (Miralax Powder Packet) 17 gm PO DAILY PRN PRN Reason: Constipation Stop: 10/06/18 02:38
--- NOTE | 2018-09-07 11:26 | Urology Progress Note ---
Date of Service September 07, 2018 Assessment & Plan (1) Hydronephrosis with obstructing calculus: 67yo M POD #1 s/p R ureteral stent placement secondary to obstructing 9mm stone, moderate hydro, LUKE on CKD. Experiencing typical stent irritation today. KUB performed to check visibility of stone, unfortunately unable to view due to stool. UC&S pending, UA not overly suspicious for UTI. Cr remains elevated today, mildly improved s/p stent placement. May take a few days to respond. ESWL vs URS discussed, unable to visualize stone on KUB presently. May benefit from repeat after colon cleanse while inpatient. He is experiencing some bloating, constipation however uncertain what to maddy mmend due to kidney function. Will defer to primary team for this. Typically does not suffer from constipatin. Pt is agreeable to ESWL later this week if able to visualize stone. Will continue to monitor while inpatient. Subjective 67yo M POD #1 s/p R ureteral stent secondary to obstructing 9mm ureteral stone with moderate hydro. CT completed at [facility], images not available. Tolerating stent okay, typical irritation including some dysuria and hematuria. Pt also experiencing small amount of clots around tip of penis. Otherwise voiding okay, feels he is emptying his bladder fine. Tolerating PO diet well, denies n/v. Denies fevers/chills. Again this is his first stone. Follows with nephrology, Dr. Winter for CKD III with baseline Cr. 1.2-1.3, but at most recent visit staying around 1.5 (Jan 2018) secondary to microvascular disease with HTN and DM. Review of Systems Review of Systems: All systems reviewed & are unremarkable except as noted in HPI & below Physical Exam Physical Exam: A&Ox3 RRR abd soft, nontender no suprapubic pain on palpation. Some old bloody around meatus, no active bleeding. Results & Data Vital Signs (Past 12 Hours) Vital Signs Temp Pulse Pulse Resp BP Pulse Ox 09/07/18 07:50 36.7 C 70 18 160/84 H 97 09/07/18 03:21 36.5 C 64 19 126/69 98 Laboratory Results Laboratory Results - last 48 hr 09/06/18 09/06/18 09/06/18 05:27 05:45 05:45 WBC 10.85 H RBC 4.54 L Hgb 11.2 L Hct 33.9 L MCV 74.7 L MCH 24.7 L MCHC 33.0 RDW Std Deviation 39.9 RDW Coeff of Jer 14.6 H Plt Count 132 MPV 8.5 Immature Gran % (Auto) 0.3 Neut % (Auto) 80.7 Lymph % (Auto) 10.3 [place] % (Auto) 8.4 Eos % (Auto) 0.2 Baso % (Auto) 0.1 Immature Gran # (Auto) 0.03 H Neut # (Auto) 8.76 H Lymph # (Auto) 1.12 L [place] # (Auto) 0.91 H Eos # (Auto) 0.02 Baso # (Auto) 0.01 RBC Morphology Unremarkable Sodium 137 Potassium 4.0 Chloride 106 Carbon Dioxide 25 Anion Gap 6.0 BUN 31 H Creatinine 1.69 H Est Cr Clr Drug Dosing 49.3 Est GFR ( Amer) 48.0 Est GFR (Non-Af Amer) 41.4 BUN/Creatinine Ratio 18.3 Glucose 149 H POC Glucose 150 H Calcium 9.0 09/06/18 09/06/18 09/06/18 12:22 15:29 17:12 WBC RBC Hgb Hct MCV MCH MCHC RDW Std Deviation RDW Coeff of Jer Plt Count MPV Immature Gran % (Auto) Neut % (Auto) Lymph % (Auto) [place] % (Auto) Eos % (Auto) Baso % (Auto) Immature Gran # (Auto) Neut # (Auto) Lymph # (Auto) [place] # (Auto) Eos # (Auto) Baso # (Auto) RBC Morphology Sodium Potassium Chloride Carbon Dioxide Anion Gap BUN Creatinine Est Cr Clr Drug Dosing Est GFR ( Amer) Est GFR (Non-Af Amer) BUN/Creatinine Ratio Glucose POC Glucose 127 H 97 100 H Calcium 09/06/18 09/07/18 09/07/18 20:43 08:30 08:32 WBC 8.31 RBC 4.64 L Hgb 11.6 L Hct 35.3 L MCV 76.1 L MCH 25.0 MCHC 32.9 RDW Std Deviation 42.0 RDW Coeff of Jer 15.1 H Plt Count 144 MPV 8.6 Immature Gran % (Auto) 0.2 Neut % (Auto) 59.6 Lymph % (Auto) 26.1 [place] % (Auto) 11.4 Eos % (Auto) 2.5 Baso % (Auto) 0.2 Immature Gran # (Auto) 0.02 Neut # (Auto) 4.94 Lymph # (Auto) 2.17 [place] # (Auto) 0.95 H Eos # (Auto) 0.21 Baso # (Auto) 0.02 RBC Morphology Sodium Potassium Chloride Carbon Dioxide Anion Gap BUN Creatinine Est Cr Clr Drug Dosing Est GFR ( Amer) Est GFR (Non-Af Amer) BUN/Creatinine Ratio Glucose POC Glucose 131 H 78 Calcium 09/07/18 09/07/18 08:35 12:14 WBC RBC Hgb Hct MCV MCH MCHC RDW Std Deviation RDW Coeff of Jer Plt Count MPV Immature Gran % (Auto) Neut % (Auto) Lymph % (Auto) [place] % (Auto) Eos % (Auto) Baso % (Auto) Immature Gran # (Auto) Neut # (Auto) Lymph # (Auto) [place] # (Auto) Eos # (Auto) Baso # (Auto) RBC Morphology Sodium 142 Potassium 3.9 Chloride 108 H Carbon Dioxide 27 Anion Gap 7.0 BUN 28 H Creatinine 1.66 H Est Cr Clr Drug Dosing 50.2 Est GFR ( Amer) 49.0 Est GFR (Non-Af Amer) 42.3 BUN/Creatinine Ratio 16.6 Glucose 81 POC Glucose 184 H Calcium 9.2
[2018-09-07] MEDS: FERROUS SULFATE 325 MG TAB PO SCH (12:50)
--- NOTE | 2018-09-07 16:22 | Family Medicine Progress Note ---
Date of Service September 07, 2018 Assessment & Plan (1) Hydronephrosis with obstructing calculus: 67yo M admitted 09/06/18 as a direct transfer from [facility] for hydronephrosis with obstructing calculus, now s/p R ureteral stent placement. Hydronephrosis with obstructing calculus -s/p Cystoscopy, Right Retrograde pyelogram, Right Ureteral stent insertion 09/06 -NSS at 125 dc'd, tolerating PO intake. Cont encourage plenty of fluids (~60 oz/day). Cr unchanged from yesterday, ~1.6, will cont monitor kidney function, labs. Repeat BMP script on d/c -Cont Rocephin. Will switch to PO cefdinir on dc -Tylenol/morphine for pain. -Zofran prn for nausea -KUB this AM- calculi not visualized due to stool. Will stack MiraLax until BM, repeat KUB in AM -Pt is agreeable to ESWL later this week if able to visualize stone. -appreciate urology recs moving forward T2DM with complications (neuropathy, nephropathy) -Placed on ISS, holding home PO agents -Last A1c measured in May 2018=6.2%. Has been <7 for 2 years. Will defer recheck. Chronic uveitis of R eye/Glaucoma -Patient on 4 eye drops, to bring from home HTN -Continue metoprolol 25 mg ER, amlodipine 10 mg -Hold lisinopril 20 mg given kidney function Anemia -cont daily iron. No concerns for acute bleeding. Stable h/h. Cont trend H/O GI bleed -states this started 3 days after initiating asa -Will hold agents at this time Constipation/Lower Abd Pain -Stacked MiraLax as above. Notes normally does not get constipated. FEN/GI: Diabetic Diet DVT Prophylaxis: SCDs, Ambulation Full Code Dispo: med/surg. D/C tomorrow. Issues with transportation today. Supervising Physician Co-Signing Physician Notes I personally examined the patient and verified all magdaleno points of history and exam, discussed case, and agree with decision making with Dr Harris. Generally feeling better. Flank/back pain better. No distress. Vitals noted, in general he is awake and alert pleasant no distress. HEENT normocephalic atraumatic mucous membranes moist. Breathing unlabored no accessory muscle use good effort. Skin shows no rashes no pallor or icterus. Neuro shows cranial nerves II through XII are grossly intact gross motor and sensory intact. Ureterolithiasisnow stable status post cystoscopy and stenting. Continue supportive care. Outpatient follow-up. Elevated creatininelikely due to dehydration prior from stone related pain/nausea/vomitinghe is now tolerating p.o. fluid. Follow-up basic metabolic panel in a few days as an outpatient. Otherwise as above. Subjective 67 y/o M found in bed this AM in NAD. No acute overnight events. States ok with d/c possibly today. Reports that pain improved. Has concerns over red color of urine s/p procedure, explained that this is normal finding. Tolerating PO i ntake. No other issues voiding. No other acute concerns or complaints. Review of Systems Review of Systems: All systems reviewed & are unremarkable except as noted in HPI & below Physical Exam Constitutional: WD/WN, vitals as above Eyes: PERRL, conjunctivae normal, anicteric sclerae ENMT: external ear and nose normal, oropharynx normal Respiratory: normal respiratory effort, lungs clear to auscultation Cardiovascular: RRR, no murmur, no edema Gastrointestinal (Abdomen): mild lower abd pain Skin: no rashes, warm and dry Psychiatric: A+Ox3, euthymic affect Results & Data Vital Signs (Past 12 Hours) Vital Signs Temp Pulse Pulse Resp BP BP Pulse Ox 09/07/18 15:08 37.2 C 71 17 156/84 H 96 09/07/18 11:31 36.7 C 68 18 152/80 H 96 09/07/18 07:50 36.7 C 70 18 160/84 H 97 Laboratory Results Laboratory Results - last 24 hr 09/06/18 09/06/18 09/07/18 17:12 20:43 08:30 WBC RBC Hgb Hct MCV MCH MCHC RDW Std Deviation RDW Coeff of Jer Plt Count MPV Immature Gran % (Auto) Neut % (Auto) Lymph % (Auto) [place] % (Auto) Eos % (Auto) Baso % (Auto) Immature Gran # (Auto) Neut # (Auto) Lymph # (Auto) [place] # (Auto) Eos # (Auto) Baso # (Auto) Sodium Potassium Chloride Carbon Dioxide Anion Gap BUN Creatinine Est Cr Clr Drug Dosing Est GFR ( Amer) Est GFR (Non-Af Amer) BUN/Creatinine Ratio Glucose POC Glucose 100 H 131 H 78 Calcium 09/07/18 09/07/18 09/07/18 08:32 08:35 12:14 WBC 8.31 RBC 4.64 L Hgb 11.6 L Hct 35.3 L MCV 76.1 L MCH 25.0 MCHC 32.9 RDW Std Deviation 42.0 RDW Coeff of Jer 15.1 H Plt Count 144 MPV 8.6 Immature Gran % (Auto) 0.2 Neut % (Auto) 59.6 Lymph % (Auto) 26.1 [place] % (Auto) 11.4 Eos % (Auto) 2.5 Baso % (Auto) 0.2 Immature Gran # (Auto) 0.02 Neut # (Auto) 4.94 Lymph # (Auto) 2.17 [place] # (Auto) 0.95 H Eos # (Auto) 0.21 Baso # (Auto) 0.02 Sodium 142 Potassium 3.9 Chloride 108 H Carbon Dioxide 27 Anion Gap 7.0 BUN 28 H Creatinine 1.66 H Est Cr Clr Drug Dosing 50.2 Est GFR ( Amer) 49.0 Est GFR (Non-Af Amer) 42.3 BUN/Creatinine Ratio 16.6 Glucose 81 POC Glucose 184 H Calcium 9.2 Medications Administered Current Inpatient Medications Acetaminophen (Tylenol) 650 mg PO Q4H PRN PRN Reason: pain/fever Stop: 10/06/18 02:38 Al Hydrox/Mg Hydrox/Simethicone (Maalox) 30 ml PO Q6H PRN PRN Reason: Dyspepsia Stop: 10/06/18 02:38 Amlodipine Besylate (Norvasc) 10 mg PO DAILY [facility] Stop: 10/06/18 08:59 Last Admin: 09/07/18 08:26 Dose: 10 mg Documented by: Dextrose (Dextrose 50%) 25 - 50 ml IV UD PRN; Protocol PRN Reason: Hypoglycemia Protocol Stop: 10/06/18 02:38 Ferrous Sulfate (Feosol) 325 mg PO QAM [facility] Stop: 10/07/18 11:14 Last Admin: 09/07/18 12:50 Dose: 325 mg Documented by: Glucagon (Glucagen) 1 mg SQ UD PRN; Protocol PRN Reason: Hypoglycemia Protocol Stop: 10/06/18 02:38 Glucose (Glucose 40%) 15 - 30 gm PO UD PRN; Protocol PRN Reason: Hypoglycemia Protocol Stop: 10/06/18 02:38 Glucose (Dex4 Glucose) 4 - 8 tabs PO UD PRN; Protocol PRN Reason: Hypoglycemia Protocol Stop: 10/06/18 02:38 Ceftriaxone Sodium 2,000 mg/ (Dextrose) 70 mls @ 140 mls/hr IV Q24H KATIE; Protocol Stop: 09/16/18 08:59 Last Infusion: 09/07/18 09:32 Dose: Infused Documented by: Prochlorperazine 10 mg/ (Syringe) 10 mls @ 5 mls/min IV Q4H PRN PRN Reason: Nausea And Vomiting Stop: 10/06/18 04:30 Last Admin: 09/06/18 05:24 Dose: 5 mls/min Documented by: Insulin Aspart (Novolog Flexpen) 0 units SC ACHS [facility] Stop: 10/06/18 16:29 Last Admin: 09/07/18 12:48 Dose: 6 units Documented by: Insulin Glargine (Lantus Solostar Pen) 16 units SC BID [facility] Stop: 10/06/18 08:59 Last Admin: 09/07/18 08:30 Dose: 16 units Documented by: Lisinopril (Zestril) 20 mg PO QAM [facility] Stop: 10/06/18 08:59 Magnesium Hydroxide (Milk Of Magnesia) 30 ml PO Q6H PRN PRN Reason: Constipation Stop: 10/06/18 02:38 Metoprolol Succinate (Toprol Xl) 25 mg PO DAILY [facility] Stop: 10/06/18 08:59 Last Admin: 09/07/18 08:27 Dose: 25 mg Documented by: Miscellaneous (Carbohydrates For Hypoglycemia) 15 - 30 gm PO UD PRN PRN Reason: Hypoglycemia Treatment Stop: 10/06/18 02:38 Morphine Sulfate (Morphine Sulfate) 4 mg IV Q2H PRN PRN Reason: Pain Stop: 09/20/18 02:38 Last Admin: 09/06/18 03:13 Dose: 4 mg Documented by: Lotemax: Non- Formulary Patient's Own Med 1 ea OPR QID [facility] Stop: 10/06/18 20:59 Last Admin: 09/07/18 12:46 Dose: Not Given Documented by: Rhopressa: Non- Formulary Patient's Own Med 1 ea OPR HS [facility] Stop: 10/06/18 20:59 Last Admin: 09/06/18 21:20 Dose: 1 drops Documented by: Tati ~ Non- Formulary Patient's Own Med 1 ea OP BID [facility] Stop: 10/06/18 20:59 Last Admin: 09/07/18 08:25 Dose: 1 drops Documented by: Ondansetron HCl (Zofran) 4 mg IV Q6H PRN PRN Reason: Nausea Stop: 10/06/18 02:38 Last Admin: 09/06/18 03:13 Dose: 4 mg Documented by: Polyethylene Glycol (Miralax Powder Packet) 17 gm PO DAILY PRN PRN Reason: Constipation Stop: 10/06/18 02:38 Resident Activity Tracking Resident Involvement: Resident Care Provided Care Provided: Adult Hospital Medicine
[2018-09-07] MEDS: RHOPRESSA: NON-FORMULARY PATIENT'S OWN MED OPR SCH (21:02)
[2018-09-08 07:06] LABS: Basophils # (auto) 0.02 K/uL (0-0.2); Basophils % (auto) 0.2 %; Eosinophils # (auto) 0.35 K/uL (0-0.5); Eosinophils % (auto) 3.2 %; Hematocrit (blood only) 33.7 % (42-52); Immature Granulocytes # (auto) 0.03 K/uL (0.00-0.02); Immature Granulocytes % (auto) 0.3 %; Lymphocytes # (auto) 1.49 K/uL (1.2-3.4); Lymphocytes % (auto) 13.6 %; Mean Corpuscular Hgb Conc 32.6 g/dL (32-36); Mean Corpuscular Volume 76.2 fL (80-100); Mean Platelet Volume 8.7 fL (7.4-10.4); Monocytes # (auto) 1.45 K/uL (0.11-0.59); Monocytes % (auto) 13.2 %; Neutrophils # (auto) 7.62 K/uL (1.4-6.5); Neutrophils % (auto) 69.5 %; Platelet Count 147 K/uL (130-400); RDW Coefficient of Variation 14.8 % (11.5-14.5); RDW Standard Deviation 41.8 fL (36.4-46.3); Red Blood Count 4.42 M/uL (4.7-6.1); White Blood Count 10.96 K/uL (4.8-10.8)
[2018-09-08] MEDS: COMBIGAN OP SCH (07:28)
[2018-09-08] MEDS: LOTEMAX OPR SCH (07:28)
[2018-09-08] MEDS: AMLODIPINE BESYLATE 5 MG TAB PO SCH (07:29)
[2018-09-08] MEDS: METOPROLOL SUCC 25MG EXT REL TAB PO SCH (07:29)
[2018-09-08] MEDS: FERROUS SULFATE 325 MG TAB PO SCH (07:30)
[2018-09-08 07:37] LABS: Albumin Level 3.4 gm/dl (3.4-5.0); BUN Creatinine Ratio 17.9 (10-20); Calcium 9.2 mg/dl (8.5-10.1); Creatinine Clr Calc Pharmacy 59.1 ml/min; Est GFR (African American) 59.7; Est GFR (Non-African American) 51.5; Potassium 3.6 mmol/L (3.5-5.1)
[2018-09-08 07:40] LABS: Albumin Globulin Ratio 0.9 (0.9-2); Bilirubin,Total 0.5 mg/dl (0.2-1); Globulin 3.9 gm/dl (2.5-4.0); Total Protein 7.3 gm/dl (6.4-8.2)
[2018-09-08] MEDS: cefTRIAXone SODIUM 2,000 MG in DEXTROSE 5% 50 ML IV SCH (07:45)
--- NOTE | 2018-09-08 08:06 | XRay Report ---
XR KUB/Abdomen 1 view CLINICAL HISTORY: 67 years-old Male presenting with obstructing calculus. TECHNIQUE: Single supine view of the abdomen was obtained. COMPARISON: 09/07/2018. FINDINGS: Moderate stool burden in the right colon and mild stool burden in the remainder of the colon. Nonobst ructive bowel gas pattern. No gross pneumoperitoneum. Right ureteral stent remains in place. No radiographic evidence of renal or ureteral calculi. Multipl e pelvic phleboliths. Atherosclerotic calcification noted. Osseous structures normal. Lung bases clear. IMPRESSION: 1. Right ureteral stent remains in place. Nonvisualization of renal or ureteral calculi. Electronically signed by: Prabhakar Dalton M.D. 09/08/2018 8:05 AM
--- NOTE | 2018-09-08 08:10 | Urology Progress Note ---
Date of Service September 08, 2018 Assessment & Plan (1) Hydronephrosis with obstructing calculus: 67yo M POD #2 s/p R ureteral stent placement secondary to obstructing R mid ureteral stone, moderate/severe hydro and LUKE on CKD. No renal stones. Creatinine back to baseline, tolerating stent well. Repeat KUB this AM - stone still not visible. Discussed options for continued bowel cleanse and repeat KUB vs IVP vs ureteroscopy. Consulted with Dr. Davies. Pt is tolerating stent well, recommend cystoscopy, URS/LL and stent exchange next Friday. Pt is agreeable to this. Ready for discharge from perspective. Okay to discharge home with flomax, pain control, cefdinir as planned. Will arrange for outpatient H&P upon discharge today, patient was instructed to report [place] [facility] [place] [address] [place] [address] upon discharge[address]iscuss[address] with Dr[address] Morgan, he is agreeable to plan. Thank you for allowing us to participate in the acute care of Mr. Burgos. Will continue care as outpatient. Subjective 67yo M POD #2 s/p R ureteral stent placement secondary to obstructing R mid ureteral stone, moderate/severe hydro and LUKE on CKD. Patient doing okay today. Denies major pain/discomfort overnight. Able to get some rest. Still having some hematuria, but becoming more intermittent. Denies urgency/frequency. Tolerating PO diet, denies n/v. VS stable, afebrile Labs reviewed - Creatinine back to baseline at 1.4. Review of Systems Review of Systems: All systems reviewed & are unremarkable except as noted in HPI & below Physical Exam Physical Exam: A&Ox3 RRR abd soft, nontender no LE edema Results & Data Vital Signs (Past 12 Hours) Vital Signs Temp Pulse Pulse Resp BP BP Pulse Ox 09/08/18 07:08 36.5 C 69 20 156/83 H 99 09/07/18 22:57 36.9 C 70 16 146/79 H 98 Laboratory Results Laboratory Results - last 48 hr 09/06/18 09/06/18 09/06/18 12:22 15:29 17:12 WBC RBC Hgb Hct MCV MCH MCHC RDW Std Deviation RDW Coeff of Jer Plt Count MPV Immature Gran % (Auto) Neut % (Auto) Lymph % (Auto) Wilkin % (Auto) Eos % (Auto) Baso % (Auto) Immature Gran # (Auto) Neut # (Auto) Lymph # (Auto) Wilkin # (Auto) Eos # (Auto) Baso # (Auto) Sodium Potassium Chloride Carbon Dioxide Anion Gap BUN Creatinine Est Cr Clr Drug Dosing Est GFR ( Amer) Est GFR (Non-Af Amer) BUN/Creatinine Ratio Glucose POC Glucose 127 H 97 100 H Calcium Total Bilirubin AST ALT Alkaline Phosphatase Total Protein Albumin Globulin Albumin/Globulin Ratio 09/06/18 09/07/18 09/07/18 20:43 08:30 08:32 WBC 8.31 RBC 4.64 L Hgb 11.6 L Hct 35.3 L MCV 76.1 L MCH 25.0 MCHC 32.9 RDW Std Deviation 42.0 RDW Coeff of Jer 15.1 H Plt Count 144 MPV 8.6 Immature Gran % (Auto) 0.2 Neut % (Auto) 59.6 Lymph % (Auto) 26.1 Wilkin % (Auto) 11.4 Eos % (Auto) 2.5 Baso % (Auto) 0.2 Immature Gran # (Auto) 0.02 Neut # (Auto) 4.94 Lymph # (Auto) 2.17 Wilkin # (Auto) 0.95 H Eos # (Auto) 0.21 Baso # (Auto) 0.02 Sodium Potassium Chloride Carbon Dioxide Anion Gap BUN Creatinine Est Cr Clr Drug Dosing Est GFR ( Amer) Est GFR (Non-Af Amer) BUN/Creatinine Ratio Glucose POC Glucose 131 H 78 Calcium Total Bilirubin AST ALT Alkaline Phosphatase Total Protein Albumin Globulin Albumin/Globulin Ratio 09/07/18 09/07/18 09/07/18 08:35 12:14 17:18 WBC RBC Hgb Hct MCV MCH MCHC RDW Std Deviation RDW Coeff of Jer Plt Count MPV Immature Gran % (Auto) Neut % (Auto) Lymph % (Auto) Wilkin % (Auto) Eos % (Auto) Baso % (Auto) Immature Gran # (Auto) Neut # (Auto) Lymph # (Auto) Wilkin # (Auto) Eos # (Auto) Baso # (Auto) Sodium 142 Potassium 3.9 Chloride 108 H Carbon Dioxide 27 Anion Gap 7.0 BUN 28 H Creatinine 1.66 H Est Cr Clr Drug Dosing 50.2 Est GFR ( Amer) 49.0 Est GFR (Non-Af Amer) 42.3 BUN/Creatinine Ratio 16.6 Glucose 81 POC Glucose 184 H 79 Calcium 9.2 Total Bilirubin AST ALT Alkaline Phosphatase Total Protein Albumin Globulin Albumin/Globulin Ratio 09/07/18 09/08/18 09/08/18 20:43 06:43 06:43 WBC 10.96 H RBC 4.42 L Hgb 11.0 L Hct 33.7 L MCV 76.2 L MCH 24.9 L MCHC 32.6 RDW Std Deviation 41.8 RDW Coeff of Jer 14.8 H Plt Count 147 MPV 8.7 Immature Gran % (Auto) 0.3 Neut % (Auto) 69.5 Lymph % (Auto) 13.6 Wilkin % (Auto) 13.2 Eos % (Auto) 3.2 Baso % (Auto) 0.2 Immature Gran # (Auto) 0.03 H Neut # (Auto) 7.62 H Lymph # (Auto) 1.49 Wilkin # (Auto) 1.45 H Eos # (Auto) 0.35 Baso # (Auto) 0.02 Sodium 139 Potassium 3.6 Chloride 105 Carbon Dioxide 26 Anion Gap 8.0 BUN 25 H Creatinine 1.41 H Est Cr Clr Drug Dosing 59.1 Est GFR ( Amer) 59.7 Est GFR (Non-Af Amer) 51.5 BUN/Creatinine Ratio 17.9 Glucose 96 POC Glucose 117 H Calcium 9.2 Total Bilirubin 0.5 AST 13 L ALT 14 Alkaline Phosphatase 62 Total Protein 7.3 Albumin 3.4 Globulin 3.9 Albumin/Globulin Ratio 0.9 09/08/18 08:08 WBC RBC Hgb Hct MCV MCH MCHC RDW Std Deviation RDW Coeff of Jer Plt Count MPV Immature Gran % (Auto) Neut % (Auto) Lymph % (Auto) Wilkin % (Auto) Eos % (Auto) Baso % (Auto) Immature Gran # (Auto) Neut # (Auto) Lymph # (Auto) Wilkin # (Auto) Eos # (Auto) Baso # (Auto) Sodium Potassium Chloride Carbon Dioxide Anion Gap BUN Creatinine Est Cr Clr Drug Dosing Est GFR ( Amer) Est GFR (Non-Af Amer) BUN/Creatinine Ratio Glucose POC Glucose 124 H Calcium Total Bilirubin AST ALT Alkaline Phosphatase Total Protein Albumin Globulin Albumin/Globulin Ratio
[2018-09-08] MEDS: INSULIN ASPART 100 UNITS/ML 3 ML PEN SC SCH (08:42)
[2018-09-08] MEDS: INSULIN GLARGINE SOLOSTAR 100 UNITS/ML 3 ML PEN SC SCH (08:43)
--- NOTE | 2018-09-08 12:25 | Discharge Summary ---
Date of Service September 08, 2018 Admission HPI Per Admitting Provider Patient is a pleasant 67yoM PMH T2DM with complications (retinopathy, peripheral neuropathy), HTN, chronic R eye uveitis, h/o GI bleed while on ASA, CKDIII, Glaucoma who presents as direct admit from OSH due to obstructing R ureteral calculus of 9mm, mod/severe R hydronephrosis, and mild R perinephric fluid. He notes he was awoken on the evening of 09/05/18 with severe R flank pain which radiated to his back and RLQ. He presented to [facility] and was transferred here after CT findings as above. Per discussion with OSH, [facility] [place]. His labs at OSH were significant for Cr 1.8 ( Baseline 1.4-1.58), WBC 11,300, UA showing Large blood and 50+ RBCs. He was started on rocephin, given fentanyl, compazine and zofran. Upon arrival he is afebrile, VSS with some hypertension. He is currently in moderate pain in the R flank and nauseated. Principal Diagnosis calculus Discharge Exam Constitutional WD/WN, vitals as above Eyes PERRL, conjunctivae normal, anicteric sclerae ENMT external ear and nose normal, oropharynx normal Respiratory normal respiratory effort, lungs clear to auscultation Cardiovascular RRR, no murmur, no edema Gastrointestinal (Abdomen) mild lower abd tenderness Skin no rashes, warm and dry Psychiatric A+Ox3, euthymic affect Discharge Data Allergies Allergy/AdvReac Type Severity Reaction Status Date / Time aspirin AdvReac Unknown Verified 09/06/18 03:01 Consultations 09/06/18 02:39 Consult Urology Routine Procedures Performed Operation Date: 09/06/18 12:30 Actual Procedures p Cystoscopy, Right Retrograde pyelogram, Right Ureteral stent insertion(Right) - Walt Esposito II, DO Ordered Studies 09/06/18 13:47 FL retrograde includes kub Routine Hospital Course (1) Hydronephrosis with obstructing calculus: 67 y/o M admitted 09/06/18 as a direct transfer from [facility] for hydronephrosis with obstructing calculus. The following is the medical management during stay here: Hydronephrosis with obstructing calculus -Pt underwent Cystoscopy, Right Retrograde pyelogram, Right Ureteral stent insertion on 09/06 and tolerated procedure well. Pt was given Tylenol/morphine for pain, which he tolerated well along with Zofran for nausea. Pt was given IV Rocephin, and will cont on PO cefdinir on d/c for one week. Post-op, KUB showed nonvisualization of renal or ureteral calculi, which was thought to be because of stool that could have been blocking view. Pt was given miraLax and repeat KUB the next morning again showed nonvisualization of renal or ureteral calculi. Urology recommended cystoscopy, URS/LL and stent exchange next for next Friday 09/[address] Davies. Pt was sent home on flomax, pain control (percocet), cefdinir as above. LUKE on CKD -Of note, pt's Cr was a little elevated ~1.66-1.69 in the days following procedure. This was likely 2/2 dehydration prior from stone related pain/nausea/vomiting. Pt tolerated PO intake s/p procedure and his Cr improved to 1.41. A BMP script was sent with pt to have done on 09/11, and instructed to f/u with PCP afterwards. Encouraged to consume plenty of fluids in interim ~60oz/day. Pt instructed to hold Lisinopril until this f/u appt. T2DM with complications (neuropathy, nephropathy) -Pt was placed on ISS here and BSGs were under control. Last A1c measured in 2018=6.2% and noted to have been <7 for 2 years. Will defer recheck to PCP. Chronic uveitis of R eye/Glaucoma -Patient continued home eye drops HTN -We continued metoprolol 25 mg ER and amlodipine 10 mg. We held lisinopril 20 mg given kidney function as above. Anemia -We cont daily iron. There were no concerns for acute bleeding. Pt does have a h/o of GI bleed and stated that this started 3 days after initiating asa, so we held this. At time of d/c, pt had no other acute concerns or complaints. Pt went to [facility] for outpatient H&P upon discharge. Total Time Total Time Spent Total Time Spent (In Minutes): <30 min Discharge Plan Discharge Items Patient Disposition: Home - Self-Care Reason For Visit: LG OBSTRUCTIVE RENAL STONE,RENAL INSUFFICIENCY Discharge Diagnosis: Obstructing kidney stone Discharge Goals: Decrease discomfort and Improve function Activity: Per 'Additional Instructions' section Non-emergency contact: Primary Care Provider and Urologist Call non-emergency contact if: you have any medication questions, your symptoms worsen, your pain is not controlled and your temperature is above 101.5 Follow-up/Referrals: Lisa Rose MD [Primary Care Provider] - Diet: Carb Consistent or DM2 Addtl Provider Instructions: You were admitted from an outside hospital where they found a 9mm obstructing stone. Here, a Right ureteral stent was placed. Please follow the below instructions on discharge: -Your pain has been well controlled here. You will go home with a prescription for percocet to be used for breakthrough pain. Otherwise you can continue tylenol. -You will continue antibiotic cefdinir for one week. -You will follow up with urology as an outpatient. Plan for ureteroscopy with Dr. Davies next Friday 09/15 -You will be given a script for lab work to complete later in the week 09/11. Please do this before seeing your PCP, as below. Please hold off taking Lisinopril until you see your PCP. They will determine if you can restart this based on your lab work looking at your kidney function. -Please see your PCP within one week of discharge for routine follow up. -Continue your home meds as before on discharge -You will be taking a new medication, flomax, which will help with urination. -You will also be taking miralax, that should help with your lower abdominal pain/bloating. This can be bought over the counter. Prescriptions: New cefdinir 300 mg capsule 300 mg PO BID 7 Days Qty: 14 RF: 0 tamsulosin [Flomax] 0.4 mg capsule 0.4 mg PO DAILY Qty: 30 RF: 0 oxycodone-acetaminophen [Percocet] 5-325 mg tablet 1 tab PO Q6H PRN (Reason: pain) Qty: 10 RF: 0 Continued amlodipine 10 mg tablet 10 mg PO DAILY Qty: 30 RF: 5 netarsudil 0.02 % drops 1 drp OPR QPM RF: 0 ferrous gluconate 324 mg (38 mg iron) tablet 324 mg PO DAILY RF: 0 sitagliptin 50 mg tablet 50 mg PO DAILY Qty: 30 RF: 0 cyanocobalamin (vitamin B-12) 1,000 mcg tablet 1,000 mcg PO DAILY RF: 0 metoprolol succinate 25 mg tablet extended release 24 hr 25 mg PO QPM Qty: 30 RF: 0 loteprednol etabonate 0.5 % drops,gel 1 drp OPR BID RF: 0 metformin 1,000 mg tablet 1,000 mg PO BID Qty: 180 RF: 0 Combigan 0.2-0.5 % drops BID RF: 0 Discontinued lisinopril 20 mg tablet BID RF: 0 Stand-Alone Forms: [employer], [facility] [employer]/Other Patient Handouts: Kidney Stones Discharge Orders: Discharge Order (Routine); Ordered 09/08/18 Ordered By: London Harris Admission Data Admit Date/Time: 09/06/18 00:37 Attending Provider: Victorino Morgan Admit Provider: Aury Castro Primary Care Provider: Lisa Rose Other Providers: Aury Castro ; Walt Esposito II ; Tessa Lyons Service: Medical Other Interventions: Discharge Summary Assessment (RN) Last Done: 09/08/18 11:14 DC Date/Time DO NOT enter until pt leaves facility: 09/08/18 12:10 Supervising Physician Co-Signing Physician Notes I personally examined the patient and verified all magdaleno points of history and exam, discussed case, and agree with decision making with Dr Harris. feeling good/ready to go home Vitals noted, in general he is awake and alert pleasant no distress. HEENT normocephalic atraumatic mucous membranes moist. Breathing unlabored no accessory muscle use good effort. Skin shows no rashes no pallor or icterus. Neuro shows cranial nerves II through XII are grossly intact gross motor and sensory intact. Ureterolithiasisnow stable status post cystoscopy and stenting. stable for discharge/outpt f/u Elevated creatininelikely due to dehydration prior from stone related pain/nausea/vomitinghe is now tolerating p.o. fluid and creatinine is improving. f/u as outpt Otherwise as above. Resident Activity Tracking Resident Involvement: Resident Care Provided Care Provided: Adult [facility]
== END 2018-09-08 12:10 | disposition home or self-care (01) | DRG 661 ==
LOC: 3W 09-06 00:37 → SUATTDRO 09-06 00:37